=== PATIENT | male | born 1945 | race Caucasian/White ===

== ENCOUNTER → 2020-12-01 | Outpatient (CLI) | payer MEDICARE ==
[~2020-12-01] MED LIST: AMLODIPINE BES2.5 MG PO; ASPIRIN EC325 MG PO; ATORVASTATIN CA40 MG PO; CARBIDOPA-LEVO1 EA14 PO; CENTRUM COMPLE1 EACH PO; ECOTRIN81 MG PO; FLOMAX 0.4 MG0.4 MG PO; FUROSEMIDE20 MG PO; IMDUR ER TAB 6060 MG PO; LOPRESSOR 25 MG25 MG PO; NITROSTAT0.4 MG SL; NUPLAZID34 MG PO; PRILOSEC10 MG PO; VITAMIN D
== END ==
LOC: EXRD 11:52
DX: M79.644 Pain in right finger(s) (principal); M79.645 Pain in left finger(s)
CPT/HCPCS: 73130

== ENCOUNTER → 2021-03-22 | Outpatient (CLI) | payer MEDICARE | LOC: HEART 5 09:10 | DX: I35.1 Nonrheumatic aortic (valve) insufficiency (principal) | CPT/HCPCS: 93306 ==

== ENCOUNTER → 2021-08-05 | Outpatient (CLI) | payer MEDICARE | LOC: ECHO 10:46 | DX: I20.9 Angina pectoris, unspecified (principal); R07.9 Chest pain, unspecified; I08.1 Rheumatic disorders of both mitral and tricuspid valves; I27.20 Pulmonary hypertension, unspecified | CPT/HCPCS: ECHO; 93306 ==